=== PATIENT | female | born 1970 | race Asian ===

== ENCOUNTER 2024-10-21 19:05 | Observation (INO) | payer OTHER ==
[2024-10-21 19:37] VITALS: BMI 31.3
[2024-10-21] MEDS ORDERED: Glucagon 1 MG/ML KIT IM PRN (20:45)
[2024-10-21] MEDS ORDERED: Acetaminophen 325 MG TAB PO PRN (20:45)
[2024-10-21] MEDS ORDERED: Dextrose 50% Abboject 50 ML SYRINGE SLOW IVP PRN (20:45)
[2024-10-21] MEDS ORDERED: Ipratropium Bromide 2.5 ml Neb NEB PRN (20:48)
[2024-10-21] MEDS ORDERED: Albuterol 200 PUFF (6.7GM INHALER) INH PRN (20:58)
[2024-10-21] MEDS: D5 1/2 NS w/20 mEq KCL 1,000 ML IV SCH (21:05)
[2024-10-21] MEDS: Famotidine 20 MG TAB PO SCH (21:06)
[2024-10-22] MEDS: Mometasone 200 MCG HFA INHALER (RT USE) INH SCH (06:45)
[2024-10-22 09:27] LABS: #Basophils 0.08 10x3/uL (0.0-0.2); #Eosinophils 0.30 10x3/uL (0.0-0.7); #Monocytes 0.83 10x3/uL (0.11-0.59); #Neutrophils 5.10 10x3/uL (1.40-6.50); %Basophils 0.9 % (0.0-1.0); %Eosinophils 3.5 % (0.0-10.0); %Lymphocytes 26.3 % (21.0-51.0); %Monocytes 9.7 % (0.0-10.0); %Neutrophils 59.4 % (42.0-75.0); Hematocrit 34.8 % (36.0-47.0); Hemoglobin 11.4 g/dL (12.0-16.0); Mean Corpuscular Hemoglobin 28.9 pg (27.0-31.0); Mean Corpuscular Volume 88.3 fL (78.0-98.0); Platelet Count 246 10x3/uL (130-400); Red Blood Cell (RBC) Count 3.94 mill/uL (4.20-5.40); White Blood Cell (WBC) Count 8.59 10x3/uL (4.8-10.8)
[2024-10-22 09:42] LABS: ALT (SGPT) 36 U/L (Less than 34); AST (SGOT) 66 U/L (11-34); Albumin 3.4 g/dL (3.1-4.5); Alkaline Phosphatase 126 U/L (40-110); Anion Gap 12 mmol/L (10-20); BUN (Urea Nitrogen) 9 mg/dL (9.8-20.1); Bilirubin, Total 0.4 mg/dL (0.3-1.2); Calc. Creatinine Clearance 110 mL/min (70-130); Calcium 8.7 mg/dL (7.8-10.44); Carbon Dioxide 25 mmol/L (22-29); Chloride 109 mmol/L (98-107); Globulin 4.0 g/dL (2.4-3.5); Glucose 99 mg/dL (70-105); Potassium 4.4 mmol/L (3.5-5.1); Sodium 142 mmol/L (136-145)
[2024-10-22] MEDS ORDERED: CEFAZOLIN 2 GM VIAL ONE (12:20)
[2024-10-22] MEDS ORDERED: Rocuronium Bromide 10 MG/ML (10ML VIAL) ONE (12:36)
[2024-10-22] MEDS ORDERED: PROPOFOL 20 ML ONE (12:37)
[2024-10-22] MEDS ORDERED: Ondansetron PF 4 MG/2 ML Vial ONE (14:03)
[2024-10-22] MEDS ORDERED: Ketorolac Tromethamine 30 MG (1 mL) VIAL ONE (14:03)
[2024-10-22] MEDS ORDERED: SUGAMMADEX SODIUM 200 MG/2 ML VIAL ONE (14:03)
[2024-10-22] MEDS ORDERED: fentaNYL PF 100 MCG/2 ML SYRINGE ONE ×2 (14:41→15:17)
[2024-10-22] MEDS ORDERED: Bupivacaine 0.25% HCL 30 ML VIAL ONE (14:47)
[2024-10-22] MEDS ORDERED: D5 1/2 NS w/20 mEq KCL 1,000 ML ONE (15:22)
[2024-10-22] MEDS: Ondansetron PF 4 MG/2 ML Vial IVP PRN (16:17)
[2024-10-22] MEDS: HYDROcodone/Acetaminophen 5/325 mg Tablet PO PRN (16:17)
[2024-10-23 06:07] LABS: ALT (SGPT) 41 U/L (Less than 34); AST (SGOT) 72 U/L (11-34); Albumin 3.7 g/dL (3.1-4.5); Alkaline Phosphatase 129 U/L (40-110); Anion Gap 14 mmol/L (10-20); BUN (Urea Nitrogen) 6 mg/dL (9.8-20.1); Bilirubin, Total 0.4 mg/dL (0.3-1.2); Calc. Creatinine Clearance 114 mL/min (70-130); Calcium 9.4 mg/dL (7.8-10.44); Carbon Dioxide 24 mmol/L (22-29); Chloride 107 mmol/L (98-107); Globulin 4.4 g/dL (2.4-3.5); Glucose 108 mg/dL (70-105); Potassium 5.1 mmol/L (3.5-5.1); Sodium 140 mmol/L (136-145)
[2024-10-23 07:41] VITALS: TEMP 98.4
[2024-10-23 12:11] VITALS: BP 154/85
== END 2024-10-23 12:29 | disposition home or self-care (01) ==
LOC: INTOOBSV 19:05 → T4-B 19:05
PROVIDERS: ADMIT Colon & Rectal Surgery; ATTEND Colon & Rectal Surgery
PROC: 0FT44ZZ Resection of Gallbladder, Percutaneous Endoscopic Approach (ICD-10-PCS; principal; 2024-10-22)
DX: K80.66 Calculus of gallbladder and bile duct with acute and chronic cholecystitis without obstruction (principal); Z91.018 Allergy to other foods; Z91.048 Other nonmedicinal substance allergy status
CPT/HCPCS: 36415; 80053; 85025; 88304; 96374; C1889; G0378; J0169; J0665; J1100; J1885; J2250; J2270; J2405; J2704; J3010; J3480

== ENCOUNTER 2024-10-27 22:47 | Emergency (ER) | payer OTHER ==
[2024-10-28] MEDS ORDERED: Acetaminophen 500 MG TAB ONE (00:30)
[2024-10-28 01:23] LABS: #Basophils 0.06 10x3/uL (0.0-0.2); #Eosinophils 0.70 10x3/uL (0.0-0.7); #Monocytes 1.10 10x3/uL (0.11-0.59); #Neutrophils 5.53 10x3/uL (1.40-6.50); %Basophils 0.6 % (0.0-1.0); %Eosinophils 7.0 % (0.0-10.0); %Lymphocytes 25.5 % (21.0-51.0); %Monocytes 11.0 % (0.0-10.0); %Neutrophils 55.4 % (42.0-75.0); Hematocrit 38.1 % (36.0-47.0); Hemoglobin 12.7 g/dL (12.0-16.0); Mean Corpuscular Hemoglobin 28.9 pg (27.0-31.0); Mean Corpuscular Volume 86.8 fL (78.0-98.0); Platelet Count 299 10x3/uL (130-400); Red Blood Cell (RBC) Count 4.39 mill/uL (4.20-5.40); White Blood Cell (WBC) Count 9.98 10x3/uL (4.8-10.8)
[2024-10-28 01:44] LABS: ALT (SGPT) 18 U/L (Less than 34); AST (SGOT) 34 U/L (11-34); Albumin 4.1 g/dL (3.1-4.5); Alkaline Phosphatase 148 U/L (40-110); Anion Gap 15 mmol/L (10-20); BUN (Urea Nitrogen) 14 mg/dL (9.8-20.1); Bilirubin, Total 0.3 mg/dL (0.3-1.2); Calc. Creatinine Clearance 0 mL/min (70-130); Calcium 9.4 mg/dL (7.8-10.44); Carbon Dioxide 25 mmol/L (22-29); Chloride 106 mmol/L (98-107); Globulin 4.6 g/dL (2.4-3.5); Glucose 98 mg/dL (70-105); Potassium 3.5 mmol/L (3.5-5.1); Sodium 142 mmol/L (136-145)
[2024-10-28] MEDS ORDERED: Iopamidol 370 76% 100 ML VIAL ONE (09:55)
== END 2024-10-28 03:28 | disposition home or self-care (01) ==
LOC: ERS 22:47
DX: L03.311 Cellulitis of abdominal wall (principal)
CPT/HCPCS: 74177; 80053; 83605; 85025